=== PATIENT | male | born 1970 | race Caucasian/White ===

== ENCOUNTER → 2021-03-27 14:55 | Outpatient (CLI) | payer BC, SELFPAY ==
--- NOTE | ~2021-03-27 | CT_ITS ---
EXAMINATION: CT abdomen pelvis wo/w con DATE: 03/27/2021 15:36 INDICATION: Gross hematuria. TECHNIQUE: Computed tomography (CT) of the abdomen and pelvis was performed without and with intraven ous contrast using a total of 130 mL Omnipaque-350 intravenous contrast with a double-bolus technique for simultaneous opacification of the renal parenchyma and renal collecting system. Automated exposu re control and iterative reconstruction technique were employed. The dose-length product was 1187.71 mGy-cm. COMPARISON: None FINDINGS: The visualized portions of the lung bases demonstrate mild scattered groundglass opacities in the low er lobes. No pleural effusion. The heart size is normal. No pericardial effusion. The liver, gallblad da, spleen, pancreas, and adrenal glands are normal. 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 The renal collecting system is poorly opacified in this area. There is partial dup lication of both ureters. There are cysts in the kidneys measuring up to 15 mm on the left. There is no urolithiasis. The bladder is normal. The prostate is mildly enlarged. There are no dilated loops o f bowel. The appendix is normal. There are no pathologically enlarged lymph nodes. There is no free i ntraperitoneal fluid. There is mild lumbar spondylosis. IMPRESSION: 1. Right kidney mass suspicious for urothelial carcinoma. 2. Mild groundglass opacities in the lower lobes of the lungs, likely inflammation or infection (such as COVID-19 pneumonia). Reviewed, dictated and finalized at location A. IMPRESSION: 1. Right kidney mass suspicious for urothelial carcinoma. 2. Mild groundglass opacities in the lower lobes of the lungs, likely inflammat ion or infection (such as COVID-19 pneumonia).
--- NOTE | ~2021-03-27 | XR_ITS ---
EXAMINATION: XR abdomen/kub 1V DATE: 03/27/2021 15:17 INDICATION: Gross hematuria. TECHNIQUE: A supine view of the abdomen on 2 radiographs was obtained. COMPARISON: CT abdomen and pelvis 03/27/2021 FINDINGS: There are no dilated loops of bowel. There is no urolithiasis. IMPRESSION: 1. No urolithiasis. Reviewed, dictated and finalized at location A. IMPRESSION: 1. No urolithiasis.
== END ==
PROVIDERS: Visit Provider Nurse Practitioner Adult Health
DX: R31.0 Gross hematuria (principal); N28.1 Cyst of kidney, acquired; M47.816 Spondylosis without myelopathy or radiculopathy, lumbar region
CPT/HCPCS: 74018; 74178; Q9967

== ENCOUNTER → 2021-04-04 00:13 | Outpatient (CLI) | payer BC, SELFPAY ==
[2021-04-04 17:04] LABS: SARS-CoV-2 RNA PCR Negative
== END ==
PROVIDERS: Visit Provider Urology
DX: Z01.812 Encounter for preprocedural laboratory examination (principal); Z20.822 Contact with and (suspected) exposure to COVID-19
CPT/HCPCS: C9803; U0003; U0005

== ENCOUNTER 2021-04-04 07:58 | Outpatient (CLI) | payer BC, SELFPAY ==
--- NOTE | 2021-04-04 09:30 | ECG_ITS ---
Measurements Intervals [place] Rate: 63 P: 79 SD: 176 QRS: 76 QRSD: 96 T: 54 QT: 394 QTc: 405 Interpretive Statements SINUS RHYTHM POSSIBLE LEFT ATRIAL ENLARGEMENT DELAYED PRECORDIAL R/S TRANSITION BASELINE ARTIFACT- I, II, III, AVR, AVL BORDERLINE ECG Electronically Signed On 04-04-2021 8:31:15 CDT by Deon Avila D.O.
== END 2021-04-04 07:59 | disposition home or self-care (01) ==
LOC: ANHSURGERY 08:04
PROVIDERS: PCP Internal Medicine; Visit Provider Urology
DX: E78.5 Hyperlipidemia, unspecified (principal); R94.31 Abnormal electrocardiogram [ECG] [EKG]
CPT/HCPCS: 93005

== ENCOUNTER 2021-04-05 00:52 | Day surgery (SDC) | payer BC, SELFPAY ==
[2021-04-03 15:02] VITALS: BMI 23.7
[2021-04-05] VITALS (10 sets, daily range): BP systolic 120–185; BP diastolic 79–111; PULSE 49–66; RESP 10–18; TEMP 36.5–36.8; O2SAT 100
--- NOTE | ~2021-04-05 | XR_ITS ---
EXAMINATION: XR retrograde pyelogram RT DATE: 04/05/2021 10:57 INDICATION: Hematuria. TECHNIQUE: 58 intraoperative fluoroscopic views of the abdomen and pelvis were obtained. I was not pr esent. Fluoroscopy exposure time was 37 seconds. COMPARISON: CT abdomen and pelvis 03/27/2021 FINDINGS: There is partial duplication of the right ureter. The retrograde pyelogram of the lower joel e ureter demonstrates a filling defect in the mid zone. IMPRESSION: 1. Right kidney filling defect, consistent with urothelial carcinoma. Reviewed, dictated and finalized at location B.
--- NOTE | 2021-04-05 07:27 | WPDHPUPDATE1 ---
History and Physical Update Update Date/Time: 04/05/21 07:27 History and Physical has been reviewed, including an updated exam of the patient. There are NO changes in the patient's condition. Risks, benefits, and alternatives have been discussed and questions answered. Patient agrees to proceed with procedure.
--- NOTE | 2021-04-05 09:21 | P.PNAN_ITS ---
Anes - Initial Pre Proc Eval Procedure: Operation Date: 04/05/21 10:30 Proposed Procedures p Cystoscopy, Right Retrograde Pyelogram, Right Ureteroscopy - Lv Grigsby MD Date/Time: 04/05/21 09:21 Surgeon: Lv Grigsby MD Pre Op Diagnosis: Gross hematuria Patient Data Age: 50 Gender: M Height: 6 ft Weight: 79.4 kg Allergies Allergy/AdvReac Type Severity Reaction Status Date / Time adhesive Allergy Unknown RASH Unverified 04/03/21 14:59 Home Medications Medication Instructions Recorded Confirmed Type cholecalciferol (vitamin D3) 50 mcg PO DAILY 04/03/21 04/03/21 History [Vitamin D3] docusate sodium [Colace] 100 mg PO DAILY 04/03/21 04/03/21 History levothyroxine 150 mcg PO DAILY 04/03/21 04/03/21 History rosuvastatin 10 mg PO DAILY 04/03/21 04/03/21 History Patient hx anesthesia problems: none Family hx anesthesia problems: none [facility] Past Medical History Medical History (Updated 04/05/21 @ 09:21 by Hua Saunders MD) Hyperlipidemia Hypothyroid Migraine Social History Social History Smoking packs per day: 2 Smoking cigarettes per day: 40.0 Years smoked: 20 Smoking pack-years: 40.00 Smoking status: Former smoker Smoking end date: 11/24/10 Alcohol intake: never Substance use: never Substance use type: does not use Living arrangements: with family Spiritual care concerns: No Anes - Eval Final PreProcedure Day of Procedure 04/05/21 09:21 Patient weight: normal Heart: regular rate and rhythm Lungs: clear to auscultation Airway: Mallampati scale class II Neurological: alert and oriented Last oral intake: >/= 8 hours ASA classification: II Emergent: no Anesthetic plan: proceed Anesthesia type and monitoring: general LMA and standard monitoring Informed Consent: The patient's anesthetic plan and its attendant risks and benefits were discussed with the patient/family/POA. Questions were solicited and answers provided to the satisfaction of the patient/family/POA.
[2021-04-05] MEDS: LACTATED RINGERS 1,000 ML 30 ML IV CONT ×2 (09:27→11:00)
[2021-04-05] MEDS: ceFAZolin 2 GM/D5W 50 ML 2 GM/50 ML BAG IVPB (10:26)
--- NOTE | 2021-04-05 11:03 | PM.PROC ---
Procedure Note - Detailed Date of procedure: 04/05/21 Pre-op diagnosis: Gross hematuria Post-op diagnosis: other (Urethral carcinoma right upper pole calyx/infindibulum) Procedure performed: cystoscopy, right ureteroscopy with biopsy and right retrograde pyelography Description of procedure: Patient brought to the operative suite was prepped draped in routine sterile fashion while in a dorsal lithotomy position. Cystoscopy is undertaken with a 19 F rigid cystoscope. Bladder neck and urethra endoscopically normal. The bladder mucosa without hyperemia. There is no intravesical foreign body neoplasm. He has a single orthotopic ureteral orifice bilaterally. The upper pole calyx has findings consistent with urothelial carcinoma. That somewhat papillary in nature. Seems to be filling the upper pole calyx. Retrograde pyelogram was used to outline the anatomy of the right collecting system. The more lower pole calices appeared to be uninvolved. This upper tract urothelial cancers appears to extend into the infundibulum but not to the renal pelvis itself. The right ureter is endoscopically normal. I did attempt to obtain biopsies from that right upper pole calyx using a thien biopsy forceps. Anesthesia: GLMA Surgeon: Lv Grigsby MD Housekeeping Attendant: None Drains: No Packing: No Pathology: yes Complications: No immediate complications Condition: stable Disposition: PACU
--- NOTE | 2021-04-05 11:41 | SUR.PHASEI ---
DR SALMON AWARE OF ELEVATED BP, NO TREATMENT AT THIS TIME.
[2021-04-05] MEDS: KETOROLAC 30 MG/ML VIAL (*BKC) IV PUSH (12:30)
[2021-04-05] MEDS: hydrALAZINE HCL 20 MG/ML VIAL 10 MG IV PUSH (13:21)
--- NOTE | 2021-04-05 13:23 | SUR.PHASEII ---
DR. SALMON NOTIFIED RE: PATIENT'S ELEVATED BLOOD PRESSURES; DR. SALMON ORDERED 10 MG HYDRALAZINE TO BE GIVEN.
== END 2021-04-05 13:41 | disposition home or self-care (01) ==
PROVIDERS: PCP Internal Medicine; Visit Provider Urology
PROC: (CPT 52352; principal; 2021-04-05 10:30)
DX: R31.0 Gross hematuria (principal); N28.89 Other specified disorders of kidney and ureter; E78.5 Hyperlipidemia, unspecified; E03.9 Hypothyroidism, unspecified; Z87.891 Personal history of nicotine dependence
CPT/HCPCS: 52354; 74420; 88305; A9270; C1769; J0360; J0690; J1100; J1885; J2250; J2405; J2704; J3010; J7120; Q9966